=== PATIENT | female | born 1945 | race Caucasian/White ===

== ENCOUNTER → 2020-06-05 09:36 | Outpatient (BNVA) | payer MEDICARE, OTHER, MEDICAID, SELFPAY | PROVIDERS: Referring Provider Internal Medicine; Visit Provider Psychiatry & Neurology Neurology | DX: G25.0 Essential tremor (principal); R41.3 Other amnesia; R53.83 Other fatigue | CPT/HCPCS: 99205 ==

== ENCOUNTER → 2020-07-18 12:19 | Outpatient (BNVA) | payer MEDICARE, MEDICAID, SELFPAY | PROVIDERS: Visit Provider Psychiatry & Neurology Neurology | DX: G25.0 Essential tremor (principal); R41.3 Other amnesia; R53.83 Other fatigue; I10 Essential (primary) hypertension | CPT/HCPCS: 99213 ==

== ENCOUNTER → 2020-10-17 11:05 | Outpatient (BNVA) | payer MEDICARE, MEDICAID, SELFPAY | PROVIDERS: Visit Provider Psychiatry & Neurology Neurology | DX: G25.0 Essential tremor (principal); R41.3 Other amnesia; R53.83 Other fatigue; I10 Essential (primary) hypertension | CPT/HCPCS: 99213 ==

== ENCOUNTER → 2021-01-23 11:15 | Outpatient (BNVA) | payer MEDICARE, MEDICAID, SELFPAY | PROVIDERS: Visit Provider Psychiatry & Neurology Neurology | DX: G25.0 Essential tremor (principal); R41.3 Other amnesia; R53.83 Other fatigue; I10 Essential (primary) hypertension | CPT/HCPCS: 99213 ==

== ENCOUNTER → 2021-03-14 07:34 | Outpatient (BNVA) | payer MEDICARE, MEDICAID, SELFPAY | PROVIDERS: Visit Provider Psychiatry & Neurology Neurology | DX: G25.0 Essential tremor (principal); R41.3 Other amnesia; R53.83 Other fatigue | CPT/HCPCS: 99441 ==

== ENCOUNTER → 2021-09-12 10:04 | Outpatient (BNVA) | payer MEDICARE, MEDICAID, SELFPAY | PROVIDERS: Visit Provider Psychiatry & Neurology Neurology | DX: G25.0 Essential tremor (principal); R41.3 Other amnesia; R53.83 Other fatigue | CPT/HCPCS: 99213 ==

== ENCOUNTER 2021-11-25 10:04 | Day surgery (SDC) | payer MEDICARE, MEDICAID, SELFPAY ==
[2021-11-25] MEDS: Tropicam./Phenyleph. (1/2.5%) 5 ML BTL OD ×3 (11:16→11:33)
[2021-11-25 11:27] VITALS: BP 147/67; PULSE 62; RESP 20; TEMP 36.6; O2SAT 95
--- NOTE | 2021-11-25 11:35 | W.ANESPRE ---
General Info Date of Service Date Performed: 11/25/21 Height: 5 ft 3 in Weight: 95.2 kg Body Mass Index (BMI): 37.1 Surgical Procedure: Operation Date: 11/25/21 13:40 Proposed Procedure Side Surgeon p Cataract Extraction with IOL Implant Right Justin Caputo MD Meds Allergies and Home Medications Allergies Allergy/AdvReac Type Severity Reaction Status Date / Time hydromorphone HCl Allergy Unknown Verified 11/25/21 11:22 [From Dilaudid] Home Medication Medication Instructions Recorded levothyroxine 50 mcg tablet 50 mcg PO HS 10/06/16 meclizine 25 mg chewable tablet 25 mg PO TID PRN 10/06/16 acetaminophen 500 mg tablet 500 mg PO Q6H PRN 03/12/20 (Tylenol Extra Strength) wheat dextrin 3 gram/3.8 gram oral 1 packet PO HS 06/05/20 powder (Benefiber Sugar Free (dextrin)) gabapentin 100 mg capsule 100 mg PO QHS 03/14/21 primidone 50 mg tablet 50 mg PO QHS #90 tabs 03/14/21 atorvastatin 10 mg tablet 10 mg PO HS 11/21/21 Current Visit Medications: Current Medications Generic Name Dose Route Start Last Admin Trade Name Freq PRN Reason Stop Dose Admin Acetaminophen 1,000 mg 11/25/21 06:00 Acetaminophen 500 Mg Tab PO Q4H PRN PRN Miscellaneous Medication 0 ml 11/25/21 06:00 Prednisolone 1%, Moxifloxacin 0.5%, Nepafenac 0.1% 5ml Btl OD DIRECTED COUNT INCLUDES THE [facility] Miscellaneous Medication 0 ml 11/25/21 06:00 11/25/21 11:33 Tropicam./Phenyleph. (1/2.5%) 5 Ml Btl OD 1 drp DIRECTED ABBY Administration Tetracaine HCl 0 ml 11/25/21 06:00 Tetracaine 0.5% 4 Ml Btl OD DIRECTED COUNT INCLUDES THE [facility] PFSH Active Problems Active Problems: Problem Status Onset Code Degeneration of lumbar intervertebral disc M51.36 Essential tremor G25.0 Memory change R41.3 Fatigue R53.83 Medical History Medical History Adjustment disorder Benign paroxysmal positional vertigo Carpal tunnel syndrome, left Cataract Complication of immunization Depressive disorder Generalized enlarged lymph nodes Hyperlipidemia Hypertensive disorder Hypothyroidism Lack of energy Loss of smell Low back pain Obesity Osteopenia Sensorineural hearing loss, bilateral (09/23/13) Spinal stenosis Tear of meniscus of knee Surgical History Surgical History (Updated 11/25/21 @ 11:22 by Jeanine Leon) Hx of breast lump removal S/P breast biopsy, bilateral S/P hysterectomy S/P knee surgery arthroscopy Tobacco Smoking/Tobacco Use Status: Never Alcohol Alcohol Intake: current Alcohol intake frequency: holidays/special occasions only Substance Use Substance use: Never Substance use type: does not use Vital Signs and Lab Results Vital Signs Most Recent Vital Signs in EMR: Most Recent Vital Signs Temp Pulse Resp BP Pulse Ox 36.6 C 62 20 147/67 H 95 11/25/21 11:27 11/25/21 11:27 11/25/21 11:27 11/25/21 11:27 11/25/21 11:27 Lab Results Blood Type / Crossmatch: No Data to Display Complete Blood Count: No Data to Display Complete Metabolic Panel: No Data to Display Liver Function Panel: No Data to Display Coagulation Panel: No Data to Display Cardiac Panel: No Data to Display Arterial Blood Gas: No Data to Display Venous Blood Gas: No Data to Display Pancreas Panel: No Data to Display Thyroid Panel: No Data to Display Infectious Disease: No Data to Display Blood Cultures: No Data to Display Toxicology Panel: No Data to Display Anesthesia Assessment and Plan Anesthesia History Personal History: No History of Anesthesia Complications Family History: No Family History of Anesthesia Complications Exercise Tolerance Exercise Tolerance: Metabolic Equivalents<4 Pertinent Negatives Pertinent Negatives: No Symptoms of GERD, No Major Cardiovascular Symptoms or Complaints and No Major Pulmonary Symptoms or Complaints Cardiac & Pulmonary Exam Cardiac Exam: Normal S1/S2 Heart Sounds Pulmonary Exam: Clear Bilateral Breath Sounds Implantable Cardiac Device Does patient have a Pacemaker or an ICD?: No Airway Exam Known Difficult Airway: No Mallampati Class: 3 Mouth Opening: Normal (> 3cm) Thyromental Distance: Greater than 3 cm Neck Range of Motion: Full ROM Neck Circumference: Normal Teeth Condition: Normal Dentition ASA Classification ASA Score: ASA 3 Emergency Case?: No NPO Status NPO Status: NPO Clears >2 hours, Solids >8 hours Anesthesia Plan Resuscitation Status: Full Code Anesthesia Technique: MAC Anesthesia Airway Planned: Natural Airway Monitors Used: Standard Monitors
[2021-11-25 12:19] VITALS: BMI 37.1
[2021-11-25] MEDS: Tetracaine 0.5% 4 ML BTL OD (12:43)
[2021-11-25] MEDS: Balanced Salt Soln.-PLUS 500 ML BAG (12:44)
[2021-11-25] MEDS: Lidocaine 2% Jelly 6 ML SYR (12:46)
[2021-11-25] MEDS: Povidone-Iodine Ophth 30 ML BTL (12:48)
[2021-11-25] MEDS: Duovisc Viscoelastic System EACH 1 EACH (12:48)
[2021-11-25] MEDS: Trypan Blue 0.06% 0.5 ML SYR (13:02)
--- NOTE | 2021-11-25 13:37 | W.PM.DSUDISC ---
Discharge Plan Disposition Patient Disposition: HOME Condition: Good Discharge Details Attending Provider: Justin Caputo Primary Care Provider: Jolene Ernandez Home Meds and New Rx's Prescriptions: No Action gabapentin 100 mg capsule 100 mg PO QHS primidone 50 mg tablet 50 mg PO QHS Qty: 90 3RF Benefiber Sugar Free (dextrin) 3 gram/3.8 gram powder 1 packet PO HS Rx Instructions: mix into at least 4 oz water or juice before administering levothyroxine 50 MCG tablet 50 mcg PO HS meclizine 25 MG tablet,chewable 25 mg PO TID PRN acetaminophen [Tylenol Extra Strength] 500 mg tablet 500 mg PO Q6H PRN atorvastatin 10 mg Tablet 10 mg PO HS Discharge Instructions Stand Alone Forms: Post-op Topical Cataract, Master Mimsey (DSU) Discharge Orders Discharge Orders: Discharge Order (Routine); Ordered 11/25/21 Ordered By: Justin Caputo DS: Diagnosis Discharge Diagnosis (1) Nuclear sclerotic cataract of right eye: Status: Resolved (2) Uveitis of right eye: Status: Chronic (3) Uveitic cataract of right eye: Status: Resolved (4) Posterior synechiae (iris), right eye: Status: Resolved
[2021-11-25 13:38] VITALS: BP 165/87; PULSE 68; RESP 18; TEMP 36.4; O2SAT 96
--- NOTE | 2021-11-25 13:41 | ROE_ITS ---
Date of service: 11/25/21 Time of Service: 13:41 Operative Note Operative Note DATE OF PROCEDURE: 11/25/21 PRE-OP DIAGNOSIS: Nuclear/uveitic cataract, right eye Extensive posterior synechia, right eye Poor red reflex secondary to cataract, right eye Short axial length with hypertropia and shallow anterior chamber, right eye History of uveitis, right eye POST-OP DIAGNOSIS: same PROCEDURE: Cataract extraction using phacoemulsification with intraocular lens implantation, right eye, using capsular staining with Vision Blue Pupillary dilation with iris hooks Release of posterior synechia SURGEON: Justin Caputo ANESTHESIA TYPE: Local By Surgeon and MAC Refer to Anesthesia Record PATHOLOGY: none sent COMPLICATIONS: None Patient was transported to: same day Patient's condition: stable Implants: Rene and Rene / [employer] Tecnis [id number] Indications: Progressive visual loss due to cataract, right eye, poor red reflex, right eye poorly dilating pupil, right eye Procedure Description: CATARACT SURGERY OPERATIVE REPORT PREOPERATIVE DIAGNOSIS: 1. Nuclear/uveitic cataract, right eye 2. 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 History of uveitis, right eye 5. Extensive posterior synechia, right eye POSTOPERATIVE DIAGNOSIS: Same OPERATION: 1. Cataract extraction using phacoemulsification with posterior chamber intraocular lens implant, right eye. 2. Capsular staining with Vision Blue 3. Pupillary dilation using iris hooks 3. Release of extensive posterior synechia IOL: IOL Instructor Looping/Model: Rene & Rene / JESSIE Tecnis [id number] IOL Power: + 34.0 diopters IOL Serial Number: [id number] Optic Diameter: 6.0mm Haptic/Overall Diameter: 13.0mm PHACO INFO: Dylan Centurion Vision System with OZil and Active Fluidics Cumulative Dispersed Energy (CDE): 13.05 seconds SURGEON: Justin Caputo MD, ARBEN ANESTHESIA: Monitored Anesthesia Care (MAC), with local sub-tenon's anesthetic infiltration COMPLICATIONS: None SPECIMENS: None INDICATIONS FOR PROCEDURE: The patient is a 75-year-old lady with history of short axial length of high hyperopia of the right eye and history of uveitis. She has developed a significant nuclear cataract in the right eye. She has extensive posterior synechia with a poorly dilating pupil and a very shallow anterior chamber. She has a significant brunescent cataract. The option of cataract surgery was offered to the patient and she wished to proceed. PROCEDURE: The correct surgical eye was identified and marked as the right eye and the pupil was dilated in the preoperative area using mydriatics and cycloplegics. The dilated pupil size was 3.5 mm. Extensive posterior synechia resulted in poor pupillary dilation. The patient elected to proceed without oral sedation. The patient was brought to the operating room where cardiopulmonary monitoring was instituted and surgical time-out was performed, confirming the correct operative eye and IOL power. Topical anesthesia was administered and ophthalmic povidone-iodine 5% was instilled into the conjunctival fornices. Lidocaine gel was applied to the cornea and the jon-ocular area was prepped with Betadine 10% solution and draped in the usual sterile fashion for intraocular surgery, including an aperture drape. A Tegaderm transparent film dressing was cut in half and used to cover the lashes and lid margins. Care was taken to sequester the lashes and lid margins under the Tegaderm dressing. A lid speculum was placed between the lids of the operative eye and the Dylan LuxOR Revalia operating microscope was maneuvered into position. Taj scissors were then used to make a conjunctival buttonhole approximately 6mm posterior to the limbus in the inferonasal quadrant. Blunt dissection was carried out to expose bare sclera, and a blunt-tipped sub-tenon?s anesthesia cannula was introduced and passed posteriorly along the globe where non- preserved plain lidocaine was injected into posterior sub-Tenon?s space. A steve eport knife was used to make a paracentesis port inferotemporally. Intraocular phenylephrine/lidocaine was injected into the anterior chamber. Healon pro was then injected into the anterior chamber and the viscoelastic cannula was used to release the extensive synechia. However, the pupil failed to dilate more than 3.5 mm. There was deemed to be insufficient space for implantation of a capsula r tension ring. The 1.0 mm side-port knife was then used to create paracenteses at the 12, 3, 530, and 9 o'clock position. Disposable iris hooks were then engaged over the pupillary margin and tightened enough to create moderate pupillary dilation without excessive stretching. A 2.4 mm keratome knife was then used to create a 2 plane clear corneal incision at the 10 o'clock position. The irrigation/aspiration handpiece was then used to evacuate viscoelastic from the anterior chamber. Air was injected into the anterior chamber, followed by Vision Blue, which was painted over the anterior capsule and then irrigated out with BSS. The anterior chamber was filled with Viscoat viscoelastic. A flap was raised on the anterior capsule and capsulorhexis forceps were used to complete a continuous curvilinear capsulorhexis of 5.0 mm. Viscoat had to be injected intermittently to maintain enough space for safe capsulorrhexis creation. Balanced salt solution was then used to perform cortical cleaving hydrodissection and nuclear hydrodelineation until the lens could be freely rotated within the capsular bag. The lens nucleus was then disassembled and removed within the capsular bag and iris plane using phacoemulsification. Viscoat was used intermittently to protect the corneal endothelium due to the shallow anterior chamber. Residual cortical material was removed using the I/A handpiece. The posterior capsule was carefully polished to remove as much residual lens epithelial cells as safely possible. The capsular bag was then inflated and the anterior chamber deepened with viscoelastic. The lens implant described above was inserted into the capsular bag using the JESSIE [place] Injector. A Kuglen hook was used to dial the IOL into position. The iris hooks were then removed. Residual viscoelastic was then removed first from posterior to the IOL, then from the anterior chamber using the I/A handpiece. The lens implant was noted to center nicely within the capsular bag. The incisions were stromally hydrated, and the anterior chamber was reformed using BSS. Then 0.5cc of moxifloxacin 1.0mg/ml were injected into the capsular bag and anterior chamber. The incisions were checked with a Weck spear and found to be secure. Several drops of ophthalmic povidone-iodine 5% were then applied to the eye followed by two drops of Imprimis combination prednisolone/moxifloxacin/nepafenac solution. The drapes were removed and a clear plastic protective eye shield was placed over the eye. The patient was then returned to Same Day Surgery in stable condition.
--- NOTE | 2021-11-25 13:49 | W.ANESPOSTOP ---
Postoperative Evaluation Date, Time and Location Date Performed: 11/25/21 Time Performed: 13:49 Patient Location: Day Surgery Unit Vital Signs Most Recent Imported Vital Signs: Most Recent Vital Signs Temp Pulse Resp BP Pulse Ox 36.4 C L 68 18 165/87 H 96 11/25/21 13:38 11/25/21 13:38 11/25/21 13:38 11/25/21 13:38 11/25/21 13:38 Pain Score Most Recent Pain Score: Most Recent Pain Score Pain Level 0 11/25/21 13:38 Assessment Mental Status: Awake (Alert & Oriented to Patient Baseline) Airway and Respiratory Function: Patent airway with normal (patient baseline) respiratory exam Cardiovascular Function: Hemodynamically Stable Hydration Status: Adequately Hydrated Nausea & Vomiting: No Nausea or Vomiting Pain: Pt. Denies Any Pain Peripheral Nerve Block: Patient did not receive a nerve block
== END 2021-11-25 14:16 | disposition home or self-care (01) ==
LOC: SUR 10:05
PROVIDERS: PCP Internal Medicine; Visit Provider Ophthalmology
PROC: (CPT 66982; principal; 2021-11-25 13:30)
DX: H25.11 Age-related nuclear cataract, right eye (principal); H21.541 Posterior synechiae (iris), right eye; H57.03 Miosis; I10 Essential (primary) hypertension; E78.5 Hyperlipidemia, unspecified; R25.1 Tremor, unspecified; H21.89 Other specified disorders of iris and ciliary body
CPT/HCPCS: 66982; V2632

== ENCOUNTER 2021-12-09 11:54 | Day surgery (SDC) | payer MEDICARE, MEDICAID, SELFPAY ==
[2021-12-09 12:04] VITALS: BP 149/74; PULSE 62; RESP 20; TEMP 36.5; O2SAT 95
[2021-12-09] MEDS: Tropicam./Phenyleph. (1/2.5%) 5 ML BTL OS ×3 (12:19→12:30)
--- NOTE | 2021-12-09 13:21 | ANES.PREOP_ITS ---
General Info Date of Service Date Performed: 12/09/21 Height: 5 ft 3 in Weight: 95.6 kg Body Mass Index (BMI): 37.3 Surgical Procedure: Operation Date: 12/09/21 15:40 Proposed Procedure Side Surgeon p Cataract Extraction with IOL Implant Left Justin Caputo MD Meds Allergies and Home Medications Allergies Allergy/AdvReac Type Severity Reaction Status Date / Time hydromorphone HCl AdvReac Intermediate per pt Verified 12/09/21 07:50 [From Dilaudid] states it makes me very sick; vomiting Home Medication Medication Instructions Recorded levothyroxine 50 mcg tablet 50 mcg PO HS 10/06/16 meclizine 25 mg chewable tablet 25 mg PO TID PRN 10/06/16 acetaminophen 500 mg tablet 500 mg PO Q6H PRN 03/12/20 (Tylenol Extra Strength) wheat dextrin 3 gram/3.8 gram oral 1 packet PO HS 06/05/20 powder (Benefiber Sugar Free (dextrin)) gabapentin 100 mg capsule 100 mg PO QHS 03/14/21 primidone 50 mg tablet 50 mg PO QHS #90 tabs 03/14/21 atorvastatin 10 mg tablet 10 mg PO HS 11/21/21 Current Visit Medications: Current Medications Generic Name Dose Route Start Last Admin Trade Name Freq PRN Reason Stop Dose Admin Acetaminophen 1,000 mg 12/09/21 06:00 Acetaminophen 500 Mg Tab PO Q4H PRN PRN Miscellaneous Medication 0 ml 12/09/21 06:00 Prednisolone 1%, Moxifloxacin 0.5%, Nepafenac 0.1% 5ml Btl OS DIRECTED [facility] Miscellaneous Medication 0 ml 12/09/21 06:00 12/09/21 12:30 Tropicam./Phenyleph. (1/2.5%) 5 Ml Btl OS 1 drp DIRECTED ABBY Administration Tetracaine HCl 0 ml 12/09/21 06:00 Tetracaine 0.5% 4 Ml Btl OS DIRECTED [facility] PFSH Active Problems Active Problems: Problem Status Onset Code Posterior synechiae (iris), right eye H21.541 Uveitic cataract of right eye H26.221, H20.9 Uveitis of right eye H20.9 Nuclear sclerotic cataract of right eye H25.11 Degeneration of lumbar intervertebral disc M51.36 Essential tremor G25.0 Memory change R41.3 Fatigue R53.83 Medical History Medical History Adjustment disorder Benign paroxysmal positional vertigo Carpal tunnel syndrome, left Cataract Complication of immunization Depressive disorder Generalized enlarged lymph nodes Hyperlipidemia Hypertensive disorder Hypothyroidism Lack of energy Loss of smell Low back pain Obesity Osteopenia Sensorineural hearing loss, bilateral (09/23/13) Spinal stenosis Tear of meniscus of knee Surgical History Surgical History Hx of breast lump removal S/P breast biopsy, bilateral S/P hysterectomy S/P knee surgery arthroscopy Tobacco Smoking/Tobacco Use Status: Never Alcohol Alcohol Intake: current Alcohol intake frequency: holidays/special occasions onl y Substance Use Substance use: Never Substance use type: does not use Vital Signs and Lab Results Vital Signs Most Recent Vital Signs in EMR: Most Recent Vital Signs Temp Pulse Resp BP Pulse Ox 36.5 C 62 20 149/74 H 95 12/09/21 12:04 12/09/21 12:04 12/09/21 12:04 12/09/21 12:04 12/09/21 12:04 Lab Results Blood Type / Crossmatch: No Data to Display Complete Blood Count: No Data to Display Complete Metabolic Panel: No Data to Display Liver Function Panel: No Data to Display Coagulation Panel: No Data to Display Cardiac Panel: No Data to Display Arterial Blood Gas: No Data to Display Venous Blood Gas: No Data to Display Pancreas Panel: No Data to Display Thyroid Panel: No Data to Display Infectious Disease: No Data to Display Blood Cultures: No Data to Display Toxicology Panel: No Data to Display Anesthesia Assessment and Plan Anesthesia History Personal History: No History of Anesthesia Complications Family History: No Family History of Anesthesia Complications Exercise Tolerance Exercise Tolerance: Metabolic Equivalents<4 Pertinent Negatives Pertinent Negatives: No Symptoms of GERD Cardiac & Pulmonary Exam Cardiac Exam: Normal S1/S2 Heart Sounds Pulmonary Exam: Clear Bilateral Breath Sounds Implantable Cardiac Device Does patient have a Pacemaker or an ICD?: No Airway Exam Known Difficult Airway: No Mallampati Class: 3 Mouth Opening: Normal (> 3cm) Thyromental Distance: Greater than 3 cm Neck Range of Motion: Full ROM Neck Circumference: Normal Teeth Condition: Normal Dentition ASA Classification ASA Score: ASA 3 Emergency Case?: No NPO Status NPO Status: NPO Clears >2 hours, Solids >8 hours Anesthesia Plan Resuscitation Status: Full Code Anesthesia Technique: MAC Anesthesia Airway Planned: Natural Airway Monitors Used: Standard Monitors Preoperative Comments:: [place] that there was a lot of pain last time would like an MKO this time.
[2021-12-09] MEDS: Povidone-Iodine Ophth 30 ML BTL (13:53)
[2021-12-09] MEDS: Tetracaine 0.5% 4 ML BTL OS (13:53)
[2021-12-09] MEDS: Lidocaine 2% Jelly 6 ML SYR (13:54)
[2021-12-09] MEDS: Balanced Salt Soln.-PLUS 500 ML BAG (13:59)
[2021-12-09] MEDS: Duovisc Viscoelastic System EACH 1 EACH (13:59)
[2021-12-09] MEDS: Trypan Blue 0.06% 0.5 ML SYR (14:05)
[2021-12-09 14:26] VITALS: BMI 37.3
--- NOTE | 2021-12-09 15:05 | W.PM.DSUDISC ---
Discharge Plan Disposition Patient Disposition: HOME Condition: Good Discharge Details Attending Provider: Justin Caputo Primary Care Provider: Jolene Ernandez Home Meds and New Rx's Prescriptions: No Action gabapentin 100 mg capsule 100 mg PO QHS primidone 50 mg tablet 50 mg PO QHS Qty: 90 3RF Benefiber Sugar Free (dextrin) 3 gram/3.8 gram powder 1 packet PO HS Rx Instructions: mix into at least 4 oz water or juice before administering levothyroxine 50 MCG tablet 50 mcg PO HS meclizine 25 MG tablet,chewable 25 mg PO TID PRN acetaminophen [Tylenol Extra Strength] 500 mg tablet 500 mg PO Q6H PRN atorvastatin 10 mg Tablet 10 mg PO HS Discharge Instructions Stand Alone Forms: Post-op Topical Cataract, Master Nair (DSU) Discharge Orders Discharge Orders: Discharge Order (Routine); Ordered 12/09/21 Ordered By: Justin Caputo DS: Diagnosis Discharge Diagnosis (1) Nuclear sclerotic cataract of left eye: Status: Resolved (2) Uveitic cataract of left eye: Status: Resolved (3) Posterior synechiae (iris), left eye: Status: Chronic
--- NOTE | 2021-12-09 15:07 | ROE_ITS ---
Date of service: 12/09/21 Time of Service: 15:07 Operative Note Operative Note DATE OF PROCEDURE: 12/09/21 PRE-OP DIAGNOSIS: Dense nuclear/uveitic cataract, left eye Extensive posterior synechia, left eye Poorly dilating pupil, left eye secondary to synechia Poor red reflex, left eye POST-OP DIAGNOSIS: same PROCEDURE: Cataract extraction using phacoemulsification with intraocular lens implant, left eye, using capsular staining with Vision Blue Pupillary dilation using iris hooks SURGEON: Justin Caputo ANESTHESIA TYPE: Local By Surgeon and MAC Refer to Anesthesia Record COMPLICATIONS: None Patient was transported to: same day Patient's condition: stable Implants: Dylan [id number] Indications: Progressive decreased vision due to cataract, left eye, with poor red reflex Procedure Description: CATARACT SURGERY OPERATIVE REPORT PREOPERATIVE DIAGNOSIS: 1. Dense nuclear/uveitic cataract, left eye 2. Poor red reflex secondary to #1 3. Poorly dilating pupil secondary to extensive synechiae,left eye POSTOPERATIVE DIAGNOSIS: Same OPERATION: 1. Cataract extraction using phacoemulsification with posterior chamber intraocular lens implant, left eye. 2. Capsular staining with Vision Blue 3. 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 She developed dense bilateral nuclear/uveitic cataracts. She has already undergone cataract surgery in the right eye. She now presents for cataract surgery in the left eye. Postoperative visual acuity will be limited by the presence of pre-existing amblyopia. PROCEDURE: The correct surgical eye was identified and marked as the left eye and the pupil was dilated in the preoperative area using mydriatics and cycloplegics. The dilated pupil size was 2.0 mm. Oral sedation was administered in the form of an Imprimis MKO Melt (midazolam 3mg/ketamine 25mg/ondansetron 2mg). The patient was brought to the operating room where cardiopulmonary monitoring was instituted and surgical time-out was performed, confirming the correct operative eye and IOL power. Topical anesthesia was administered and ophthalmic povidone-iodine 5% was instilled into the conjunctival fornices. Lidocaine gel was applied to the cornea and the jon-ocular area was prepped with Betadine 10% solution and draped in the usual sterile fashion for intraocular surgery, including an aperture drape. A Tegaderm transparent film dressing was cut in half and used to cover the lashes and lid margins. Care was taken to sequester the lashes and lid margins under the Tegaderm dressing. A lid speculum was placed between the lids of the operative eye and the Dylan LuxOR Revalia operating microscope was maneuvered into position. Taj scissors were then used to make a conjunctival buttonhole approximately 6mm posterior to the limbus in the inferonasal quadrant. Blunt dissection was carried out to expose bare sclera, and a blunt-tipped sub-tenon?s anesthesia cannula was introduced and passed posteriorly along the globe where a 50-50 mixture of lidocaine 1% and ropivacaine 0.5% was injected into posterior sub- Tenon?s space. A sideport knife was used to make a paracentesis port superiorly/superiortemporally. Intraocular phenylephrine/lidocaine was injected int the anterior chamber.. Healon pro was then injected into the anterior chamber. A 2.4 mm keratome knife was then used to create a near clear corneal tunnel extending approximately 2 mm into clear cornea temporally. A Kuglen hook was used to release the extensive, almost 360 degrees, synechia and a small amount of viscoelastic was injected under the iris margin. A mild amount of bleeding at the iris margin was present. 4 paracentesis incisions were then made and iris hooks were then engaged on the pupillary margin and used to dilate the pupil. Healon was then removed from the anterior chamber. Air was then injected into the anterior chamber, followed by Vision Blue, which was painted over the anterior capsule and then irrigated out using BSS. The anterior chamber was filled with viscoelastic. Viscoat was used to fill the anterior chamber.. A flap was raised on the anterior capsule and capsulorhexis forceps were used to complete a continuous curvilinear capsulorhexis of 4.8 mm. Balanced salt solution was then used to perform cortical cleaving hydrodissection and nuclear hydrodelineation until the lens could be freely rotated within the capsular bag. The lens nucleus was then disassembled and removed within the capsular bag and iris plane using phacoemulsification. Viscoat was used intermittently to protect the corneal endothelium. Nuclear splitters were used to help in cracking the dense nucleus into to have, and the tabs were then subchopped under viscoelastic protection. Residual cortical material was removed using the 45-degree angled silicone I/A tip with 0.3mm port. The posterior capsule was carefully polished to remove as much residual lens epithelial cells as safely possible. The capsular bag was then inflated and the anterior chamber deepened with viscoelastic. The lens implant described above was inserted into the capsular bag using the JESSIE Fay Injector. A Kuglen hook was used to dial the IOL into position. The iris hooks were then removed. Residual viscoelastic was then removed first from posterior to the IOL, then from the anterior chamber using the I/A handpiece. The lens implant was noted t o center nicely within the capsular bag. The incisions were stromally hydrated, and the anterior chamber was reformed using BSS. Then 0.5cc of moxifloxacin 1.0mg/ml were injected into the capsular bag and anterior chamber. The incisions were checked with a Weck spear and found to be secure. Several drops of ophthalmic povidone-iodine 5% were then applied to the eye followed by two drops of Imprimis combination prednisolone/moxifloxacin/nepafenac solution. The drapes were removed and a clear plastic protective eye shield was placed over the eye. The patient was then returned to Same Day Surgery in stable condition.
[2021-12-09 15:13] VITALS: BP 143/64; PULSE 56; RESP 19; TEMP 36.3; O2SAT 97
--- NOTE | 2021-12-09 15:20 | W.ANESPOSTOP ---
Postoperative Evaluation Date, Time and Location Date Performed: 12/09/21 Time Performed: 15:21 Patient Location: Day Surgery Unit Vital Signs Most Recent Imported Vital Signs: Most Recent Vital Signs Temp Pulse Resp BP Pulse Ox 36.3 C L 56 L 19 143/64 H 97 12/09/21 15:13 12/09/21 15:13 12/09/21 15:13 12/09/21 15:13 12/09/21 15:13 Pain Score Most Recent Pain Score: Most Recent Pain Score Pain Level 0 12/09/21 15:13 Assessment Mental Status: Awake (Alert & Oriented to Patient Baseline) Airway and Respiratory Function: Patent airway with normal (patient baseline) respiratory exam Cardiovascular Function: Hemodynamically Stable Hydration Status: Adequately Hydrated Nausea & Vomiting: No Nausea or Vomiting Pain: Pt. Denies Any Pain Peripheral Nerve Block: Other (Local by Dr. Caputo)
[2021-12-09 15:33] VITALS: BP 146/71; PULSE 58; RESP 18; TEMP 36.5; O2SAT 97
== END 2021-12-09 15:35 | disposition home or self-care (01) ==
LOC: SUR 11:54
PROVIDERS: PCP Internal Medicine; Visit Provider Ophthalmology
PROC: (CPT 66982; principal; 2021-12-09 15:30)
DX: H25.12 Age-related nuclear cataract, left eye (principal); H21.512 Anterior synechiae (iris), left eye; H57.03 Miosis
CPT/HCPCS: 66982; V2632

== ENCOUNTER → 2022-03-13 11:03 | Outpatient (BNVA) | payer MEDICARE, MEDICAID, SELFPAY | PROVIDERS: PCP Internal Medicine; Referring Provider Internal Medicine; Visit Provider Psychiatry & Neurology Neurology | DX: G25.0 Essential tremor (principal); R53.83 Other fatigue; I10 Essential (primary) hypertension | CPT/HCPCS: 99213 ==

== ENCOUNTER → 2023-03-17 10:32 | Outpatient (BNVA) | payer MEDICARE, MEDICAID, SELFPAY | PROVIDERS: PCP Internal Medicine; Referring Provider Internal Medicine; Visit Provider Psychiatry & Neurology Neurology | DX: I10 Essential (primary) hypertension (principal); G25.0 Essential tremor; R41.3 Other amnesia; R53.83 Other fatigue | CPT/HCPCS: 99214 ==

== ENCOUNTER → 2024-03-15 10:39 | Outpatient (BNVA) | payer MEDICARE, MEDICAID, SELFPAY | PROVIDERS: PCP Internal Medicine; Referring Provider Internal Medicine; Visit Provider Psychiatry & Neurology Neurology | DX: G25.0 Essential tremor (principal); R41.3 Other amnesia; R53.83 Other fatigue | CPT/HCPCS: 99213 ==

== ENCOUNTER → 2025-03-14 09:43 | Outpatient (BNVA) | payer MEDICARE, MEDICAID, SELFPAY | PROVIDERS: PCP Internal Medicine; Referring Provider Internal Medicine; Visit Provider Psychiatry & Neurology Neurology | DX: G25.0 Essential tremor (principal); R53.83 Other fatigue; I10 Essential (primary) hypertension | CPT/HCPCS: 99213 ==